=== PATIENT | male | born 1945 | race Caucasian/White ===

== ENCOUNTER 2017-03-23 10:12 | Day surgery (SDC) | payer MEDICARE ==
[~2017-03-23] VITALS: Ht 185.4 cm; Wt 140.9 kg
[~2017-03-23 10:12] MED LIST: ATOR20TA9 PO; CARV3.122 PO; CHOL5000 PO; DIPH50CA62 PO; EPLE50TA3 PO; GABA-826 PO; GUAI600T31 PO; IPRA15SP INH; LEVO125T PO; MONT10TA9 PO; MULT-717 PO; POTA20TA14 PO; TORS20TA2 PO; WARF5TAB PO
[2017-03-23 10:49] VITALS: BP 118/65
[2017-03-23] MEDS ORDERED: ALBU18HF INH (11:17)
[2017-03-23] MEDS ORDERED: IPRA3AMP NEB (11:17)
[2017-03-23 11:20] LABS: BLOOD UREA NITROGEN 22 mg/dL (7-18)
[2017-03-23] MEDS ORDERED: IRON1TAB62 PO (11:23)
[2017-03-23] MEDS ORDERED: ASCO100T5 PO (11:23)
[2017-03-23] MEDS ORDERED: GUAI473L20 PO (11:23)
[2017-03-23] MEDS ORDERED: PHENYLEPHRINE 10 MG/ML ONE (11:40)
[2017-03-23] MEDS ORDERED: PROPOFOL 10 MG/ML, 20ML ONE (11:40)
[2017-03-23] MEDS ORDERED: MIDAZOLAM 1 MG/ML, 5ML ONE (11:55)
[2017-03-23] MEDS ORDERED: HEPARIN 1,000 UNITS/ML, 10ML ONE (11:56)
[2017-03-23] MEDS ORDERED: LIDOCAINE 2%, 20ML ONE (11:56)
[2017-03-23] MEDS ORDERED: FENTANYL PF 100 MCG/2ML ONE (11:56)
[2017-03-23 12:00] LABS: HEMATOCRIT 42.2 % (39.2-51.8); WHITE BLOOD COUNT 11.5 x10^3/uL (3.4-10)
[2017-03-23] MEDS ORDERED: FUROSEMIDE 40 MG/4 ML IV ONE (13:00)
[2017-03-23] MEDS ORDERED: GABAPENTIN 100 MG CAPSULE PO SCH (21:00)
[2017-03-23] MEDS ORDERED: TORSEMIDE 20 MG TABLET PO SCH (21:00)
[2017-03-23] MEDS ORDERED: WARFARIN 5 MG TABLET PO-COUM SCH (21:00)
[2017-03-24] MEDS ORDERED: LEVOTHYROXINE 125 MCG TABLET PO SCH (06:00)
[2017-03-24] MEDS ORDERED: MONTELUKAST 10 MG TABLET PO SCH (09:00)
[2017-03-24] MEDS ORDERED: ATORVASTATIN 20 MG TABLET PO SCH (09:00)
== END 2017-03-23 15:15 | disposition home or self-care (01) ==
LOC: CACL 10:12
PROVIDERS: ATTEND Internal Medicine Cardiovascular Disease
DX: I27.21 Secondary pulmonary arterial hypertension (principal); I34.0 Nonrheumatic mitral (valve) insufficiency; I50.9 Heart failure, unspecified; I11.0 Hypertensive heart disease with heart failure; I48.2 Chronic atrial fibrillation; I27.0 Primary pulmonary hypertension; N50.82 Scrotal pain; Z79.01 Long term (current) use of anticoagulants; Z87.39 Personal history of other diseases of the musculoskeletal system and connective tissue
CPT/HCPCS: 36415; 80048; 85025; 85610; 85730; 93312; 93321; 93325; 93451; 99156; 99157; C1894; J1644; J2250; J2704; J3010; J3490; J2370

== ENCOUNTER 2017-03-29 13:16 | Inpatient (IN) | payer MEDICARE ==
[~2017-03-29] VITALS: Ht 185.4 cm; Wt 126.0 kg
[~2017-03-29 13:16] MED LIST changes: +ALBU18HF INH; +ASCO100T5 PO; +GUAI473L20 PO; +IPRA3AMP NEB; +IRON1TAB62 PO
[2017-03-29 15:24] VITALS: BP 104/64
[2017-03-29] MEDS ORDERED: PLEASE ENTER HEIGHT AND WEIGHT MC SCH (17:11)
[2017-03-29] MEDS ORDERED: POLYETHYLENE GLYCOL 17 GM PACKET PO PRN (17:30)
[2017-03-29] MEDS ORDERED: GUAIFENESIN/COD200MG-20MG/10ML LIQUID PO PRN (17:30)
[2017-03-29] MEDS ORDERED: ONDANSETRON ODT 4 MG PO PRN (17:30)
[2017-03-29 17:49] LABS: HEMATOCRIT 42.9 % (39.2-51.8); HEMOGLOBIN 14.2 g/dL (13.7-18.0); WHITE BLOOD COUNT 11.6 x10^3/uL (3.4-10)
[2017-03-29 18:10] LABS: ASPARTATE AMINO TRANSFERASE 49 U/L (15-37); BLOOD UREA NITROGEN 35 mg/dL (7-18)
[2017-03-29] MEDS ORDERED: WARFARIN 1 MG TABLET PO-COUM ONE (19:00)
[2017-03-29] MEDS: POTASSIUM CHLORIDE 20 MEQ TAB.ER.PRT PO SCH (20:14)
[2017-03-29] MEDS: FUROSEMIDE 40 MG/4 ML IV SCH (20:15)
[2017-03-29] MEDS: GABAPENTIN 100 MG CAPSULE PO SCH (20:16)
[2017-03-29 20:20] VITALS: BP 106/63
[2017-03-29] MEDS ORDERED: ALBUTEROL SULFATE 2.5 MG/3 ML ONE (21:10)
[2017-03-29 21:44] LABS: POTASSIUM,URINE RANDOM 48 mmol/L
[2017-03-29] MEDS ORDERED: ALBUTEROL/IPRATROPIUM 2.5MG/0.5MG, 3 ML NPPB PRN (22:00)
[2017-03-30 01:46] VITALS: BP 98/60
[2017-03-30 05:25] LABS: HEMATOCRIT 41.5 % (39.2-51.8); HEMOGLOBIN 13.6 g/dL (13.7-18.0); WHITE BLOOD COUNT 11.9 x10^3/uL (3.4-10)
[2017-03-30 05:52] LABS: ASPARTATE AMINO TRANSFERASE 46 U/L (15-37); BLOOD UREA NITROGEN 33 mg/dL (7-18)
[2017-03-30] MEDS: LEVOTHYROXINE 150 MCG TABLET PO SCH (06:18)
[2017-03-30 07:51] VITALS: BP 106/64
[2017-03-30] MEDS ORDERED: METOLAZONE 5 MG TABLET ONE (08:59)
[2017-03-30] MEDS: MONTELUKAST 10 MG TABLET PO SCH (09:15)
[2017-03-30] MEDS: FUROSEMIDE 40 MG/4 ML IV SCH (09:16)
[2017-03-30] MEDS: POTASSIUM CHLORIDE 20 MEQ TAB.ER.PRT PO SCH ×3 (09:16→21:38)
[2017-03-30] MEDS: METOLAZONE 2.5 MG TABLET PO SCH (09:16)
[2017-03-30] MEDS: EPLERENONE 100 MG PO SCH (09:37)
[2017-03-30] MEDS: ALBUTEROL/IPRATROPIUM 2.5MG/0.5MG, 3 ML NPPB SCH ×2 (10:34→20:20)
[2017-03-30] MEDS ORDERED: SPIRONOLACTONE 50 MG TABLET PO ONE (11:30)
[2017-03-30] MEDS ORDERED: SPIRONOLACTONE 25 MG TABLET ONE (11:49)
[2017-03-30] MEDS ORDERED: FUROSEMIDE 40 MG/4 ML IV ONE (12:00)
[2017-03-30 13:43] VITALS: BP 110/73
[2017-03-30] MEDS: FUROSEMIDE IV SCH (17:28)
[2017-03-30] MEDS: DEXTROSE 5% IV SCH (17:28)
[2017-03-30] MEDS ORDERED: WARFARIN 2 MG TABLET PO-COUM ONE (18:00)
[2017-03-30 20:15] VITALS: BP 115/69
[2017-03-30 20:27] VITALS: BP 99/63
[2017-03-30] MEDS ORDERED: FUROSEMIDE 40 MG/4 ML IV SCH (21:00)
[2017-03-30] MEDS: ATORVASTATIN 20 MG TABLET PO SCH (21:37)
[2017-03-30] MEDS: GABAPENTIN 100 MG CAPSULE PO SCH (21:37)
[2017-03-31 02:30] VITALS: BP 140/71
[2017-03-31 05:25] LABS: HEMATOCRIT 41.9 % (39.2-51.8); HEMOGLOBIN 13.7 g/dL (13.7-18.0); WHITE BLOOD COUNT 10.8 x10^3/uL (3.4-10)
[2017-03-31 05:32] LABS: BLOOD UREA NITROGEN 30 mg/dL (7-18)
[2017-03-31 05:36] LABS: ASPARTATE AMINO TRANSFERASE 44 U/L (15-37)
[2017-03-31] MEDS: LEVOTHYROXINE 150 MCG TABLET PO SCH (05:53)
[2017-03-31] MEDS ORDERED: POTASSIUM CHLORIDE 40 MEQ in SODIUM CHLORIDE 0.9% 500 ML IV ONE (06:00)
[2017-03-31 07:39] VITALS: BP 137/76
[2017-03-31 08:00] VITALS: BP 107/65
[2017-03-31] MEDS: METOLAZONE 2.5 MG TABLET PO SCH (08:53)
[2017-03-31] MEDS: POTASSIUM CHLORIDE 20 MEQ TAB.ER.PRT PO SCH ×3 (08:53→21:20)
[2017-03-31] MEDS: ATORVASTATIN 20 MG TABLET PO SCH (08:54)
[2017-03-31] MEDS: MONTELUKAST 10 MG TABLET PO SCH (08:54)
[2017-03-31] MEDS: ALBUTEROL/IPRATROPIUM 2.5MG/0.5MG, 3 ML NPPB SCH ×2 (09:00→18:51)
[2017-03-31] MEDS: FUROSEMIDE IV SCH ×2 (11:00→18:11)
[2017-03-31] MEDS: DEXTROSE 5% IV SCH ×2 (11:00→18:11)
[2017-03-31] MEDS: EPLERENONE 100 MG PO SCH (11:09)
[2017-03-31 13:22] VITALS: BP 110/66
[2017-03-31] MEDS ORDERED: POTASSIUM CHLORIDE 20 MEQ in SODIUM CHLORIDE 0.9% 250 ML IV ONE (15:30)
[2017-03-31 17:35] LABS: BLOOD UREA NITROGEN 34 mg/dL (7-18)
[2017-03-31] MEDS ORDERED: WARFARIN 5 MG TABLET PO-COUM ONE (18:00)
[2017-03-31 20:58] VITALS: BP 120/72
[2017-03-31] MEDS: GABAPENTIN 100 MG CAPSULE PO SCH (21:20)
[2017-03-31 21:57] LABS: BLOOD UREA NITROGEN 34 mg/dL (7-18)
[2017-04-01 01:42] VITALS: BP 101/60
[2017-04-01 05:47] LABS: HEMATOCRIT 39.5 % (39.2-51.8); HEMOGLOBIN 13.3 g/dL (13.7-18.0); WHITE BLOOD COUNT 9.7 x10^3/uL (3.4-10)
[2017-04-01 06:06] LABS: ASPARTATE AMINO TRANSFERASE 40 U/L (15-37); BLOOD UREA NITROGEN 30 mg/dL (7-18)
[2017-04-01] MEDS: LEVOTHYROXINE 150 MCG TABLET PO SCH (06:15)
[2017-04-01] MEDS ORDERED: POTASSIUM CHLORIDE 40 MEQ in SODIUM CHLORIDE 0.9% 500 ML IV ONE (07:00)
[2017-04-01 08:21] VITALS: BP 95/55
[2017-04-01] MEDS: METOLAZONE 2.5 MG TABLET PO SCH (08:27)
[2017-04-01] MEDS: POTASSIUM CHLORIDE 20 MEQ TAB.ER.PRT PO SCH ×3 (08:47→21:29)
[2017-04-01] MEDS: ATORVASTATIN 20 MG TABLET PO SCH (08:47)
[2017-04-01] MEDS: MONTELUKAST 10 MG TABLET PO SCH (08:47)
[2017-04-01] MEDS: SPIRONOLACTONE 50 MG TABLET PO SCH (09:00)
[2017-04-01 10:30] VITALS: BP 103/57
[2017-04-01] MEDS: DEXTROSE 5% IV SCH ×2 (10:52→17:20)
[2017-04-01] MEDS: FUROSEMIDE IV SCH ×2 (10:52→17:20)
[2017-04-01 11:45] VITALS: BP 117/77
[2017-04-01] MEDS: EPLERENONE 100 MG PO SCH (12:00)
[2017-04-01 14:51] VITALS: BP 97/67
[2017-04-01] MEDS ORDERED: WARFARIN 7.5 MG TABLET PO-COUM ONE (18:00)
[2017-04-01] MEDS: DOCUSATE 100 MG CAPSULE PO PRN (18:21)
[2017-04-01 20:00] VITALS: BP 101/59
[2017-04-01] MEDS: GABAPENTIN 100 MG CAPSULE PO SCH (21:29)
[2017-04-01] MEDS: ALBUTEROL/IPRATROPIUM 2.5MG/0.5MG, 3 ML NPPB SCH (21:35)
[2017-04-02 04:00] VITALS: BP 97/61
[2017-04-02 05:57] LABS: BLOOD UREA NITROGEN 32 mg/dL (7-18)
[2017-04-02] MEDS: LEVOTHYROXINE 150 MCG TABLET PO SCH (06:17)
[2017-04-02 07:58] VITALS: BP 106/63
[2017-04-02] MEDS: SPIRONOLACTONE 50 MG TABLET PO SCH (08:14)
[2017-04-02] MEDS: METOLAZONE 2.5 MG TABLET PO SCH (08:14)
[2017-04-02] MEDS: POTASSIUM CHLORIDE 20 MEQ TAB.ER.PRT PO SCH ×4 (08:14→21:20)
[2017-04-02] MEDS: ALBUTEROL/IPRATROPIUM 2.5MG/0.5MG, 3 ML NPPB SCH (09:00)
[2017-04-02] MEDS: DEXTROSE 5% IV SCH ×2 (09:22→17:38)
[2017-04-02] MEDS: FUROSEMIDE IV SCH ×2 (09:22→17:38)
[2017-04-02] MEDS: ATORVASTATIN 20 MG TABLET PO SCH (09:22)
[2017-04-02] MEDS: MONTELUKAST 10 MG TABLET PO SCH (09:22)
[2017-04-02] MEDS: EPLERENONE 100 MG PO SCH (09:24)
[2017-04-02 14:30] VITALS: BP 110/73
[2017-04-02] MEDS ORDERED: WARFARIN 7.5 MG TABLET PO-COUM ONE (18:00)
[2017-04-02] MEDS ORDERED: ONDANSETRON ODT 4 MG PO PRN (20:00)
[2017-04-02] MEDS: GABAPENTIN 100 MG CAPSULE PO SCH (21:20)
[2017-04-02 21:25] VITALS: BP 97/61
[2017-04-03 01:16] VITALS: BP 105/65
[2017-04-03 05:52] LABS: HEMATOCRIT 40.6 % (39.2-51.8); HEMOGLOBIN 13.6 g/dL (13.7-18.0); WHITE BLOOD COUNT 10.5 x10^3/uL (3.4-10)
[2017-04-03 06:01] LABS: ASPARTATE AMINO TRANSFERASE 45 U/L (15-37); BLOOD UREA NITROGEN 35 mg/dL (7-18)
[2017-04-03] MEDS: POTASSIUM CHLORIDE 20 MEQ TAB.ER.PRT PO SCH ×4 (06:19→20:08)
[2017-04-03] MEDS: LEVOTHYROXINE 150 MCG TABLET PO SCH (06:20)
[2017-04-03] MEDS: METOLAZONE 2.5 MG TABLET PO SCH (07:49)
[2017-04-03 08:06] VITALS: BP 104/67
[2017-04-03] MEDS: ATORVASTATIN 20 MG TABLET PO SCH (08:41)
[2017-04-03] MEDS: EPLERENONE 100 MG PO SCH (08:41)
[2017-04-03] MEDS: MONTELUKAST 10 MG TABLET PO SCH (08:41)
[2017-04-03] MEDS: FUROSEMIDE IV SCH (09:37)
[2017-04-03] MEDS: DEXTROSE 5% IV SCH (09:37)
[2017-04-03] MEDS: POLYETHYLENE GLYCOL 17 GM PACKET PO PRN (10:55)
[2017-04-03] MEDS: DOCUSATE 100 MG CAPSULE PO PRN (11:00)
[2017-04-03 12:23] VITALS: BP 98/76
[2017-04-03] MEDS ORDERED: WARFARIN 10 MG TABLET PO-COUM ONE ×2 (16:17→18:00)
[2017-04-03] MEDS: FUROSEMIDE 40 MG/4 ML IV SCH (16:20)
[2017-04-03] MEDS: GABAPENTIN 100 MG CAPSULE PO SCH (20:08)
[2017-04-03 20:14] VITALS: BP 110/70
[2017-04-03] MEDS: ALBUTEROL/IPRATROPIUM 2.5MG/0.5MG, 3 ML NPPB SCH (20:15)
[2017-04-04 02:00] VITALS: BP 89/55
[2017-04-04] MEDS: LEVOTHYROXINE 150 MCG TABLET PO SCH (06:18)
[2017-04-04 07:25] VITALS: BP 95/61
[2017-04-04] MEDS: METOLAZONE 2.5 MG TABLET PO SCH (08:05)
[2017-04-04 08:09] LABS: HEMATOCRIT 40.8 % (39.2-51.8); HEMOGLOBIN 13.8 g/dL (13.7-18.0); WHITE BLOOD COUNT 9.9 x10^3/uL (3.4-10)
[2017-04-04 08:23] LABS: BLOOD UREA NITROGEN 34 mg/dL (7-18)
[2017-04-04 08:26] LABS: ASPARTATE AMINO TRANSFERASE 45 U/L (15-37)
[2017-04-04] MEDS: ALBUTEROL/IPRATROPIUM 2.5MG/0.5MG, 3 ML NPPB SCH (09:00)
[2017-04-04] MEDS: FUROSEMIDE 40 MG/4 ML IV SCH ×2 (09:56→16:51)
[2017-04-04] MEDS: MONTELUKAST 10 MG TABLET PO SCH (09:56)
[2017-04-04] MEDS: POTASSIUM CHLORIDE 20 MEQ TAB.ER.PRT PO SCH ×3 (09:56→20:43)
[2017-04-04] MEDS: ATORVASTATIN 20 MG TABLET PO SCH (09:57)
[2017-04-04] MEDS: EPLERENONE 100 MG PO SCH (10:01)
[2017-04-04 10:02] VITALS: BP 96/64
[2017-04-04 14:50] VITALS: BP 97/61
[2017-04-04] MEDS ORDERED: WARFARIN 5 MG TABLET PO-COUM ONE (18:00)
[2017-04-04 20:08] VITALS: BP 101/61
[2017-04-04] MEDS: GABAPENTIN 100 MG CAPSULE PO SCH (20:43)
[2017-04-05 02:00] VITALS: BP 100/64
[2017-04-05 05:35] LABS: BLOOD UREA NITROGEN 33 mg/dL (7-18)
[2017-04-05 06:25] VITALS: BP 99/66
[2017-04-05] MEDS: MONTELUKAST 10 MG TABLET PO SCH (09:21)
[2017-04-05] MEDS: METOLAZONE 2.5 MG TABLET PO SCH (09:21)
[2017-04-05] MEDS: LEVOTHYROXINE 150 MCG TABLET PO SCH (09:21)
[2017-04-05] MEDS: ATORVASTATIN 20 MG TABLET PO SCH (09:21)
[2017-04-05] MEDS: POTASSIUM CHLORIDE 20 MEQ TAB.ER.PRT PO SCH ×3 (09:21→20:17)
[2017-04-05] MEDS: FUROSEMIDE 40 MG/4 ML IV SCH ×2 (09:22→17:06)
[2017-04-05] MEDS: ALBUTEROL/IPRATROPIUM 2.5MG/0.5MG, 3 ML NPPB SCH (09:30)
[2017-04-05] MEDS ORDERED: ZOLPIDEM 10MG TABLET PO PRN (10:00)
[2017-04-05] MEDS: EPLERENONE 100 MG PO SCH (10:13)
[2017-04-05 13:30] VITALS: BP 96/61
[2017-04-05] MEDS ORDERED: WARFARIN 5 MG TABLET PO-COUM ONE (18:00)
[2017-04-05 19:52] VITALS: BP 123/71
[2017-04-05] MEDS: GABAPENTIN 100 MG CAPSULE PO SCH (20:17)
[2017-04-05] MEDS: DOCUSATE 100 MG CAPSULE PO PRN (20:18)
[2017-04-05] MEDS: ZOLPIDEM 10MG TABLET PO PRN (20:18)
[2017-04-06 00:06] VITALS: BP 99/72
[2017-04-06 00:27] VITALS: BP 11/62
[2017-04-06 05:38] LABS: HEMATOCRIT 39.7 % (39.2-51.8); HEMOGLOBIN 13.5 g/dL (13.7-18.0); WHITE BLOOD COUNT 9.7 x10^3/uL (3.4-10)
[2017-04-06 05:50] LABS: BLOOD UREA NITROGEN 35 mg/dL (7-18)
[2017-04-06 07:32] VITALS: BP 94/53
[2017-04-06] MEDS: LEVOTHYROXINE 150 MCG TABLET PO SCH (09:14)
[2017-04-06] MEDS: POTASSIUM CHLORIDE 20 MEQ TAB.ER.PRT PO SCH ×3 (09:14→21:40)
[2017-04-06] MEDS: METOLAZONE 2.5 MG TABLET PO SCH (09:14)
[2017-04-06] MEDS: MONTELUKAST 10 MG TABLET PO SCH (09:14)
[2017-04-06] MEDS: ATORVASTATIN 20 MG TABLET PO SCH (09:14)
[2017-04-06] MEDS: FUROSEMIDE 40 MG/4 ML IV SCH ×2 (09:14→17:58)
[2017-04-06] MEDS: EPLERENONE 100 MG PO SCH (09:18)
[2017-04-06] MEDS: ALBUTEROL/IPRATROPIUM 2.5MG/0.5MG, 3 ML NPPB SCH (09:18)
[2017-04-06 13:46] VITALS: BP 103/65
[2017-04-06] MEDS ORDERED: WARFARIN 5 MG TABLET PO-COUM ONE (18:00)
[2017-04-06] MEDS: ZOLPIDEM 10MG TABLET PO PRN (21:40)
[2017-04-06] MEDS: POLYETHYLENE GLYCOL 17 GM PACKET PO PRN (21:40)
[2017-04-06] MEDS: GABAPENTIN 100 MG CAPSULE PO SCH (21:40)
[2017-04-06 21:47] VITALS: BP 95/61
[2017-04-07 03:37] VITALS: BP 99/62
[2017-04-07] MEDS: LEVOTHYROXINE 150 MCG TABLET PO SCH (05:31)
[2017-04-07 06:15] LABS: BLOOD UREA NITROGEN 34 mg/dL (7-18)
[2017-04-07 07:15] VITALS: BP 104/62
[2017-04-07] MEDS: POTASSIUM CHLORIDE 20 MEQ TAB.ER.PRT PO SCH ×3 (07:41→20:43)
[2017-04-07] MEDS: FUROSEMIDE 40 MG/4 ML IV SCH ×2 (07:41→17:41)
[2017-04-07] MEDS: MONTELUKAST 10 MG TABLET PO SCH (07:41)
[2017-04-07] MEDS: EPLERENONE 100 MG PO SCH (07:42)
[2017-04-07] MEDS: METOLAZONE 2.5 MG TABLET PO SCH (07:42)
[2017-04-07] MEDS: ALBUTEROL/IPRATROPIUM 2.5MG/0.5MG, 3 ML NPPB SCH (09:00)
[2017-04-07] MEDS: CEFTRIAXONE PMX 2GM/50ML 50 ML IV SCH (11:09)
[2017-04-07 14:30] VITALS: BP 95/55
[2017-04-07] MEDS ORDERED: MAGNESIUM CITRATE 300ML ORAL SOL PO ONE (17:30)
[2017-04-07] MEDS ORDERED: WARFARIN 10 MG TABLET PO-COUM ONE (18:00)
[2017-04-07 20:30] VITALS: BP 104/99
[2017-04-07] MEDS: GABAPENTIN 100 MG CAPSULE PO SCH (20:43)
[2017-04-07] MEDS: ATORVASTATIN 20 MG TABLET PO SCH (20:43)
[2017-04-07] MEDS: ZOLPIDEM 10MG TABLET PO PRN (21:33)
[2017-04-08 03:40] VITALS: BP 97/62
[2017-04-08 05:47] LABS: HEMATOCRIT 41.8 % (39.2-51.8); HEMOGLOBIN 13.7 g/dL (13.7-18.0); WHITE BLOOD COUNT 10.8 x10^3/uL (3.4-10)
[2017-04-08 06:19] LABS: BLOOD UREA NITROGEN 36 mg/dL (7-18)
[2017-04-08] MEDS: LEVOTHYROXINE 150 MCG TABLET PO SCH (06:41)
[2017-04-08] MEDS: METOLAZONE 2.5 MG TABLET PO SCH (08:37)
[2017-04-08] MEDS: EPLERENONE 100 MG PO SCH (08:37)
[2017-04-08 08:42] VITALS: BP 109/73
[2017-04-08] MEDS: CEFTRIAXONE PMX 2GM/50ML 50 ML IV SCH ×2 (10:22→12:12)
[2017-04-08] MEDS: POTASSIUM CHLORIDE 20 MEQ TAB.ER.PRT PO SCH ×3 (10:24→21:55)
[2017-04-08] MEDS: MONTELUKAST 10 MG TABLET PO SCH (10:24)
[2017-04-08] MEDS: FUROSEMIDE 40 MG/4 ML IV SCH ×3 (10:25→17:36)
[2017-04-08 13:55] VITALS: BP 100/65
[2017-04-08] MEDS ORDERED: WARFARIN 10 MG TABLET PO-COUM ONE (18:00)
[2017-04-08 19:05] VITALS: BP 99/61
[2017-04-08] MEDS: ATORVASTATIN 20 MG TABLET PO SCH (21:56)
[2017-04-08] MEDS: GABAPENTIN 100 MG CAPSULE PO SCH (21:56)
[2017-04-08] MEDS: ZOLPIDEM 10MG TABLET PO PRN (22:01)
[2017-04-09 04:57] VITALS: BP 92/51
[2017-04-09 05:38] LABS: BLOOD UREA NITROGEN 38 mg/dL (7-18)
[2017-04-09] MEDS: LEVOTHYROXINE 150 MCG TABLET PO SCH (06:00)
[2017-04-09 07:48] VITALS: BP 93/57
[2017-04-09] MEDS: METOLAZONE 2.5 MG TABLET PO SCH (08:03)
[2017-04-09] MEDS: CEFTRIAXONE PMX 2GM/50ML 50 ML IV SCH (09:10)
[2017-04-09] MEDS: FUROSEMIDE 40 MG/4 ML IV SCH ×2 (09:10→17:17)
[2017-04-09] MEDS: EPLERENONE 100 MG PO SCH (09:11)
[2017-04-09] MEDS: MONTELUKAST 10 MG TABLET PO SCH (09:11)
[2017-04-09] MEDS: POTASSIUM CHLORIDE 20 MEQ TAB.ER.PRT PO SCH ×3 (09:11→20:34)
[2017-04-09] MEDS ORDERED: POTASSIUM CHLORIDE 20 MEQ TAB.ER.PRT PO ONE (10:30)
[2017-04-09 13:15] VITALS: BP 104/63
[2017-04-09] MEDS ORDERED: DIPHENHYDRAMINE 25 MG CAPSULE PO PRN (15:30)
[2017-04-09] MEDS ORDERED: WARFARIN 10 MG TABLET PO-COUM ONE (18:00)
[2017-04-09 19:55] VITALS: BP_SYST 100; BP_SYST 96; BP_DIAS 54; BP_DIAS 57
[2017-04-09] MEDS: ATORVASTATIN 20 MG TABLET PO SCH (20:34)
[2017-04-09] MEDS: ZOLPIDEM 10MG TABLET PO PRN ×2 (20:35→21:28)
[2017-04-09] MEDS: GABAPENTIN 100 MG CAPSULE PO SCH (20:35)
[2017-04-10 01:37] VITALS: BP 104/62
[2017-04-10] MEDS: LEVOTHYROXINE 150 MCG TABLET PO SCH (05:14)
[2017-04-10 05:39] LABS: ASPARTATE AMINO TRANSFERASE 83 U/L (15-37); BLOOD UREA NITROGEN 39 mg/dL (7-18)
[2017-04-10 05:47] LABS: HEMATOCRIT 38.9 % (39.2-51.8); WHITE BLOOD COUNT 8.6 x10^3/uL (3.4-10)
[2017-04-10 07:22] VITALS: BP 91/59
[2017-04-10] MEDS: EPLERENONE 100 MG PO SCH (09:00)
[2017-04-10] MEDS: METOLAZONE 2.5 MG TABLET PO SCH (09:02)
[2017-04-10] MEDS: MONTELUKAST 10 MG TABLET PO SCH (09:02)
[2017-04-10] MEDS: POTASSIUM CHLORIDE 20 MEQ TAB.ER.PRT PO SCH ×4 (09:02→20:19)
[2017-04-10] MEDS: CEFTRIAXONE PMX 2GM/50ML 50 ML IV SCH (09:03)
[2017-04-10] MEDS: FUROSEMIDE 40 MG/4 ML IV SCH ×2 (09:03→17:44)
[2017-04-10] MEDS ORDERED: POTASSIUM CHLORIDE 20 MEQ TAB.ER.PRT PO ONE (11:00)
[2017-04-10 15:21] VITALS: BP 101/65
[2017-04-10] MEDS ORDERED: WARFARIN 7.5 MG TABLET PO-COUM ONE (18:00)
[2017-04-10 19:30] VITALS: BP 93/59
[2017-04-10] MEDS: GABAPENTIN 100 MG CAPSULE PO SCH (20:18)
[2017-04-10] MEDS: ZOLPIDEM 10MG TABLET PO PRN ×2 (20:18→20:19)
[2017-04-10] MEDS: ATORVASTATIN 20 MG TABLET PO SCH (20:18)
[2017-04-11 04:00] VITALS: BP 96/61
[2017-04-11 05:27] LABS: ASPARTATE AMINO TRANSFERASE 70 U/L (15-37); BLOOD UREA NITROGEN 39 mg/dL (7-18)
[2017-04-11 05:31] LABS: HEMATOCRIT 38.1 % (39.2-51.8); WHITE BLOOD COUNT 9.1 x10^3/uL (3.4-10)
[2017-04-11] MEDS: LEVOTHYROXINE 150 MCG TABLET PO SCH (06:17)
[2017-04-11] MEDS: POTASSIUM CHLORIDE 20 MEQ TAB.ER.PRT PO SCH ×4 (06:17→20:20)
[2017-04-11 08:11] VITALS: BP 95/63
[2017-04-11] MEDS: EPLERENONE 100 MG PO SCH (09:00)
[2017-04-11] MEDS ORDERED: ALLOPURINOL 100 MG TABLET PO SCH (09:00)
[2017-04-11] MEDS: MONTELUKAST 10 MG TABLET PO SCH (09:03)
[2017-04-11] MEDS: METOLAZONE 2.5 MG TABLET PO SCH (09:03)
[2017-04-11] MEDS: FUROSEMIDE 40 MG/4 ML IV SCH ×2 (09:03→17:00)
[2017-04-11] MEDS: CEFTRIAXONE PMX 2GM/50ML 50 ML IV SCH (09:04)
[2017-04-11 13:25] VITALS: BP 100/64
[2017-04-11] MEDS ORDERED: WARFARIN 2.5 MG TABLET PO-COUM ONE (18:00)
[2017-04-11] MEDS: ATORVASTATIN 20 MG TABLET PO SCH (20:20)
[2017-04-11] MEDS: GABAPENTIN 100 MG CAPSULE PO SCH (20:20)
[2017-04-11] MEDS: ZOLPIDEM 10MG TABLET PO PRN (20:27)
[2017-04-11 20:34] VITALS: BP 96/61
[2017-04-12 03:00] VITALS: BP 98/65
[2017-04-12] MEDS: POTASSIUM CHLORIDE 20 MEQ TAB.ER.PRT PO SCH ×4 (06:17→20:55)
[2017-04-12] MEDS: LEVOTHYROXINE 150 MCG TABLET PO SCH (06:17)
[2017-04-12 06:30] LABS: ASPARTATE AMINO TRANSFERASE 69 U/L (15-37); BLOOD UREA NITROGEN 37 mg/dL (7-18)
[2017-04-12 08:45] VITALS: BP 99/62
[2017-04-12] MEDS: MONTELUKAST 10 MG TABLET PO SCH (08:47)
[2017-04-12] MEDS: DOCUSATE 100 MG CAPSULE PO PRN (08:47)
[2017-04-12] MEDS: FUROSEMIDE 40 MG/4 ML IV SCH ×2 (08:47→16:38)
[2017-04-12] MEDS: EPLERENONE 100 MG PO SCH (08:47)
[2017-04-12] MEDS: METOLAZONE 2.5 MG TABLET PO SCH (08:47)
[2017-04-12] MEDS: CEFTRIAXONE PMX 2GM/50ML 50 ML IV SCH (10:38)
[2017-04-12 12:42] VITALS: BP 96/63
[2017-04-12] MEDS ORDERED: WARFARIN 2.5 MG TABLET PO-COUM ONE (18:00)
[2017-04-12 18:25] VITALS: BP 97/66
[2017-04-12] MEDS: GABAPENTIN 100 MG CAPSULE PO SCH (20:55)
[2017-04-12] MEDS: ATORVASTATIN 20 MG TABLET PO SCH (20:55)
[2017-04-12] MEDS: ZOLPIDEM 10MG TABLET PO PRN ×2 (20:57→20:58)
[2017-04-12] MEDS: POLYETHYLENE GLYCOL 17 GM PACKET PO PRN (21:11)
[2017-04-13 04:00] VITALS: BP 95/62
[2017-04-13 06:30] LABS: BLOOD UREA NITROGEN 36 mg/dL (7-18)
[2017-04-13] MEDS: LEVOTHYROXINE 150 MCG TABLET PO SCH (06:39)
[2017-04-13] MEDS: POTASSIUM CHLORIDE 20 MEQ TAB.ER.PRT PO SCH ×4 (06:42→20:33)
[2017-04-13 07:35] VITALS: BP 97/60
[2017-04-13] MEDS: MONTELUKAST 10 MG TABLET PO SCH (08:52)
[2017-04-13] MEDS: CEFTRIAXONE PMX 2GM/50ML 50 ML IV SCH (08:53)
[2017-04-13] MEDS: METOLAZONE 2.5 MG TABLET PO SCH (08:53)
[2017-04-13] MEDS: FUROSEMIDE 40 MG/4 ML IV SCH ×2 (08:53→17:43)
[2017-04-13] MEDS: EPLERENONE 100 MG PO SCH (08:54)
[2017-04-13 12:56] VITALS: BP 92/59
[2017-04-13] MEDS: POLYETHYLENE GLYCOL 17 GM PACKET PO PRN (17:43)
[2017-04-13] MEDS ORDERED: WARFARIN 5 MG TABLET PO-COUM ONE (18:00)
[2017-04-13 18:34] VITALS: BP 92/60
[2017-04-13] MEDS: ATORVASTATIN 20 MG TABLET PO SCH (20:32)
[2017-04-13] MEDS: ZOLPIDEM 10MG TABLET PO PRN (20:33)
[2017-04-13] MEDS: GABAPENTIN 100 MG CAPSULE PO SCH (20:33)
[2017-04-14 01:49] VITALS: BP 95/61
[2017-04-14] MEDS: POTASSIUM CHLORIDE 20 MEQ TAB.ER.PRT PO SCH ×4 (05:57→20:22)
[2017-04-14] MEDS: LEVOTHYROXINE 150 MCG TABLET PO SCH (05:58)
[2017-04-14 06:37] LABS: ASPARTATE AMINO TRANSFERASE 46 U/L (15-37); BLOOD UREA NITROGEN 36 mg/dL (7-18)
[2017-04-14 06:54] VITALS: BP_SYST 96; BP_SYST 99; BP_DIAS 60; BP_DIAS 64
[2017-04-14] MEDS: METOLAZONE 2.5 MG TABLET PO SCH (08:48)
[2017-04-14] MEDS: MONTELUKAST 10 MG TABLET PO SCH (09:53)
[2017-04-14] MEDS: FUROSEMIDE 40 MG/4 ML IV SCH (09:53)
[2017-04-14] MEDS: EPLERENONE 100 MG PO SCH (09:53)
[2017-04-14 14:54] VITALS: BP_SYST 89; BP_SYST 95; BP_DIAS 58; BP_DIAS 61
[2017-04-14] MEDS ORDERED: WARFARIN 10 MG TABLET PO-COUM ONE (18:00)
[2017-04-14] MEDS: TORSEMIDE 20 MG TABLET PO SCH (18:07)
[2017-04-14 18:47] VITALS: BP 100/65
[2017-04-14] MEDS: GABAPENTIN 100 MG CAPSULE PO SCH (20:22)
[2017-04-14] MEDS: ATORVASTATIN 20 MG TABLET PO SCH (20:22)
[2017-04-14] MEDS: ZOLPIDEM 10MG TABLET PO PRN (20:22)
[2017-04-15 03:30] VITALS: BP 94/60
[2017-04-15 06:07] LABS: ASPARTATE AMINO TRANSFERASE 45 U/L (15-37); BLOOD UREA NITROGEN 37 mg/dL (7-18)
[2017-04-15] MEDS: LEVOTHYROXINE 150 MCG TABLET PO SCH (06:15)
[2017-04-15] MEDS: TORSEMIDE 20 MG TABLET PO SCH ×2 (06:15→07:41)
[2017-04-15] MEDS: POTASSIUM CHLORIDE 20 MEQ TAB.ER.PRT PO SCH ×2 (06:17→12:32)
[2017-04-15] MEDS: METOLAZONE 2.5 MG TABLET PO SCH (07:42)
[2017-04-15] MEDS: MONTELUKAST 10 MG TABLET PO SCH (07:42)
[2017-04-15] MEDS: EPLERENONE 100 MG PO SCH (07:43)
[2017-04-15 07:44] VITALS: BP 96/61
[2017-04-15] MEDS ORDERED: TORS20TA PO (11:49)
[2017-04-15] MEDS ORDERED: DOCU-131 PO (11:49)
[2017-04-15] MEDS ORDERED: METO2.5T PO (11:49)
[2017-04-15] MEDS ORDERED: POTA20TA6 PO (11:49)
[2017-04-15] MEDS ORDERED: MAGN64TA9 PO (11:50)
[2017-04-15 13:54] VITALS: BP 93/56
[2017-04-15] MEDS ORDERED: WARFARIN 10 MG TABLET PO-COUM ONE (18:00)
== END 2017-04-15 16:00 | disposition home or self-care (01) | DRG 291 ==
LOC: 5SO 14:56 → DCLOUNGE 04-15 15:10
PROVIDERS: ADMIT Internal Medicine; ATTEND Hospitalist
PROC: 5A09357 Assistance with Respiratory Ventilation, Less than 24 Consecutive Hours, Continuous Positive Airway Pressure (ICD-10-PCS; principal; 2017-03-31)
PROC: 5A09357 Assistance with Respiratory Ventilation, Less than 24 Consecutive Hours, Continuous Positive Airway Pressure (ICD-10-PCS; 2017-04-01)
PROC: 5A09357 Assistance with Respiratory Ventilation, Less than 24 Consecutive Hours, Continuous Positive Airway Pressure (ICD-10-PCS; 2017-04-02)
PROC: 5A09357 Assistance with Respiratory Ventilation, Less than 24 Consecutive Hours, Continuous Positive Airway Pressure (ICD-10-PCS; 2017-04-03)
PROC: 5A09357 Assistance with Respiratory Ventilation, Less than 24 Consecutive Hours, Continuous Positive Airway Pressure (ICD-10-PCS; 2017-04-04)
PROC: 5A09357 Assistance with Respiratory Ventilation, Less than 24 Consecutive Hours, Continuous Positive Airway Pressure (ICD-10-PCS; 2017-04-06)
PROC: 5A09357 Assistance with Respiratory Ventilation, Less than 24 Consecutive Hours, Continuous Positive Airway Pressure (ICD-10-PCS; 2017-04-07)
PROC: 5A09357 Assistance with Respiratory Ventilation, Less than 24 Consecutive Hours, Continuous Positive Airway Pressure (ICD-10-PCS; 2017-04-10)
DX: I13.0 Hypertensive heart and chronic kidney disease with heart failure and stage 1 through stage 4 chronic kidney disease, or unspecified chronic kidney disease (principal); I50.33 Acute on chronic diastolic (congestive) heart failure; N17.0 Acute kidney failure with tubular necrosis; E87.0 Hyperosmolality and hypernatremia; D68.69 Other thrombophilia; E11.22 Type 2 diabetes mellitus with diabetic chronic kidney disease; E87.1 Hypo-osmolality and hyponatremia; I48.2 Chronic atrial fibrillation; G25.81 Restless legs syndrome; L03.90 Cellulitis, unspecified; N50.89 Other specified disorders of the male genital organs; Z79.01 Long term (current) use of anticoagulants; E03.9 Hypothyroidism, unspecified; E66.9 Obesity, unspecified; E78.5 Hyperlipidemia, unspecified; E87.6 Hypokalemia; G47.33 Obstructive sleep apnea (adult) (pediatric); I25.10 Atherosclerotic heart disease of native coronary artery without angina pectoris; I27.21 Secondary pulmonary arterial hypertension; I27.29 Other secondary pulmonary hypertension; I34.0 Nonrheumatic mitral (valve) insufficiency; I87.8 Other specified disorders of veins; K59.00 Constipation, unspecified; N18.2 Chronic kidney disease, stage 2 (mild); S91.301A Unspecified open wound, right foot, initial encounter; T50.2X5A Adverse effect of carbonic-anhydrase inhibitors, benzothiadiazides and other diuretics, initial encounter; Z79.84 Long term (current) use of oral hypoglycemic drugs; Z82.49 Family history of ischemic heart disease and other diseases of the circulatory system; Z86.73 Personal history of transient ischemic attack (TIA), and cerebral infarction without residual deficits; Z87.891 Personal history of nicotine dependence; Z95.0 Presence of cardiac pacemaker; Z98.1 Arthrodesis status; Z79.899 Other long term (current) drug therapy
CPT/HCPCS: 36415; 71010; 76870; 80048; 80053; 81003; 82306; 82436; 82550; 82607; 83036; 83735; 83880; 83970; 84100; 84132; 84133; 84300; 84443; 84550; 85025; 85610; 87040; 87324; 93005; 93922; 94640; C8929; J0696; J1940; J3480; J7620; Q0162; 29581-50; J7040; J7050

== ENCOUNTER → 2017-04-18 | Outpatient (CLI) | payer MEDICARE ==
[~2017-04-18] MED LIST changes: +DOCU-131 PO; +MAGN64TA9 PO; +METO2.5T PO; +POTA20TA6 PO; +TORS20TA PO
== END | disposition home or self-care (01) ==
LOC: WOUND 13:18
PROVIDERS: ATTEND Internal Medicine
DX: E11.621 Type 2 diabetes mellitus with foot ulcer (principal); L97.521 Non-pressure chronic ulcer of other part of left foot limited to breakdown of skin; E11.622 Type 2 diabetes mellitus with other skin ulcer; L97.222 Non-pressure chronic ulcer of left calf with fat layer exposed; L97.212 Non-pressure chronic ulcer of right calf with fat layer exposed; S51.011A Laceration without foreign body of right elbow, initial encounter; I48.91 Unspecified atrial fibrillation; I11.0 Hypertensive heart disease with heart failure; I50.9 Heart failure, unspecified; E11.40 Type 2 diabetes mellitus with diabetic neuropathy, unspecified; J43.9 Emphysema, unspecified; E03.9 Hypothyroidism, unspecified; Z87.891 Personal history of nicotine dependence; Z86.73 Personal history of transient ischemic attack (TIA), and cerebral infarction without residual deficits; Z72.89 Other problems related to lifestyle; X58.XXXA Exposure to other specified factors, initial encounter; Y93.89 Activity, other specified; Y92.89 Other specified places as the place of occurrence of the external cause; Y99.8 Other external cause status
CPT/HCPCS: 97597; 97598; G0463; WOU0463

== ENCOUNTER 2017-05-01 01:27 | Inpatient (IN) | payer MEDICARE ==
[~2017-05-01] VITALS: Ht 185.4 cm; Wt 134.1 kg
[2017-05-01 02:33] LABS: BASOPHILS # (AUTO) 0.06 x10^3/uL (0-0.1); BASOPHILS % (AUTO) 1 % (0-1); EOSINOPHILS # (AUTO) 0.08 x10^3/uL (0-0.4); EOSINOPHILS % (AUTO) 1 % (1-7); LYMPHOCYTES % (AUTO) 6 % (22-44); MD NO; MEAN CORPUSCULAR HEMOGLOBIN 27.5 pg (27.5-34.5); MEAN CORPUSCULAR HGB CONC 33.3 g/dL (33.2-36.2); MEAN CORPUSCULAR VOLUME 82.6 fL (81-97); MEAN PLATELET VOLUME 7.4 fL (7.4-10.4); MONOCYTES # (AUTO) 1.24 x10^3/uL (0.2-0.8); MONOCYTES % (AUTO) 10 % (2-9); NEUTROPHILS # (AUTO) 9.85 x10^3/uL (1.8-6.8); NEUTROPHILS % (AUTO) 83 % (42-75); PLATELET COUNT 200 x10^3/uL (130-400); RED BLOOD COUNT 4.76 x10^6/uL (4.38-5.82); RED CELL DISTRIBUTION WIDTH 15.9 % (9.4-14.8)
[2017-05-01 02:41] LABS: INTERNATIONAL NORMALIZED RATIO 2.32 (0.93-1.1); PROTHROMBIN TIME 23.5 Seconds (9.6-11.5)
[2017-05-01 02:44] LABS: ALANINE AMINOTRANSFERASE 31 U/L (12-78); ALBUMIN 2.2 g/dL (3.4-5.0); ANION GAP 11 mmol/L (5-15); CALCIUM 7.7 mg/dL (8.5-10.1); CHLORIDE 88 mmol/L (98-107); CREATININE 1.22 mg/dL (0.7-1.3)
[2017-05-01 02:49] LABS: ALKALINE PHOSPHATASE 157 U/L (45-117); BILIRUBIN,TOTAL 0.7 mg/dL (0.2-1.0); TOTAL PROTEIN 5.6 g/dL (6.4-8.2)
[2017-05-01] MEDS ORDERED: FURO40SO5 PO (04:01)
[2017-05-01] MEDS ORDERED: ONDANSETRON 2MG/ML, 2ML IVPush PRN (04:30)
[2017-05-01] MEDS ORDERED: GUAIFENESIN/COD200MG-20MG/10ML LIQUID PO PRN (07:00)
[2017-05-01] MEDS ORDERED: ACETAMINOPHEN 325 MG TABLET PO PRN (07:00)
[2017-05-01 07:10] LABS: TROPONIN I 0.096 ng/mL (0.000-0.045)
[2017-05-01 08:07] VITALS: BP 116/76
[2017-05-01] MEDS: [UNRECOGNIZED DRUG - OTHER] HOMEMEDPO SCH (09:00)
[2017-05-01] MEDS: EPLERENONE 100 MG HOMEMEDPO SCH (09:00)
[2017-05-01] MEDS ORDERED: TORSEMIDE 20 MG TABLET PO SCH (09:00)
[2017-05-01] MEDS ORDERED: ALBUTEROL HFA 90 MCG/SPRAY INH SCH (09:00)
[2017-05-01] MEDS: MULTIVITAMINS/MINERALS TABLET PO SCH (10:34)
[2017-05-01] MEDS: ASCORBIC ACID 500 MG TABLET PO SCH (10:34)
[2017-05-01] MEDS: LEVOTHYROXINE 150 MCG TABLET HOMEMEDPO SCH (10:34)
[2017-05-01] MEDS: SODIUM CHLORIDE FLUSH 10ML SYR IVF SCH ×2 (10:35→19:33)
[2017-05-01] MEDS: MONTELUKAST 10 MG TABLET PO SCH (10:35)
[2017-05-01] MEDS: FUROSEMIDE 40 MG/4 ML IV SCH ×2 (10:35→17:00)
[2017-05-01] MEDS: POTASSIUM CHLORIDE 20 MEQ TAB.ER.PRT PO SCH ×3 (10:35→19:32)
[2017-05-01] MEDS: CHOLECALCIFEROL 1,000 UNIT TABLET PO SCH (10:35)
[2017-05-01] MEDS: MAGNESIUM CHLORIDE 64 MG TABLET.DR PO SCH (10:35)
[2017-05-01 15:22] VITALS: BP 107/65
[2017-05-01] MEDS: ALBUTEROL SULFATE 2.5 MG/3 ML NPPB SCH ×2 (16:40→20:47)
[2017-05-01] MEDS ORDERED: WARFARIN 5 MG TABLET PO-COUM ONE (16:52)
[2017-05-01] MEDS: WARFARIN 5 MG TABLET PO-COUM SCH (17:01)
[2017-05-01] MEDS: ATORVASTATIN 20 MG TABLET PO SCH (19:33)
[2017-05-01] MEDS: GABAPENTIN 400 MG CAPSULE PO SCH (19:33)
[2017-05-01] MEDS: DOXYCYCLINE 100MG TABLET PO SCH (19:33)
[2017-05-01 20:18] VITALS: BP 128/81
[2017-05-02 01:05] VITALS: BP 102/63
[2017-05-02 04:37] LABS: HCT (SEDRATE) 39.5 % (39.2-51.8)
[2017-05-02 04:38] LABS: BASOPHILS # (AUTO) 0.07 x10^3/uL (0-0.1); BASOPHILS % (AUTO) 1 % (0-1); EOSINOPHILS % (AUTO) 1 % (1-7); LYMPHOCYTES # (AUTO) 0.65 x10^3/uL (1-3.4); LYMPHOCYTES % (AUTO) 7 % (22-44); MD NO; MEAN CORPUSCULAR HEMOGLOBIN 27.6 pg (27.5-34.5); MEAN CORPUSCULAR VOLUME 83.6 fL (81-97); MEAN PLATELET VOLUME 7.4 fL (7.4-10.4); MONOCYTES # (AUTO) 1.27 x10^3/uL (0.2-0.8); MONOCYTES % (AUTO) 13 % (2-9); NEUTROPHILS # (AUTO) 7.54 x10^3/uL (1.8-6.8); NEUTROPHILS % (AUTO) 78 % (42-75); PLATELET COUNT 191 x10^3/uL (130-400); RED BLOOD COUNT 4.71 x10^6/uL (4.38-5.82); RED CELL DISTRIBUTION WIDTH 16.5 % (9.4-14.8)
[2017-05-02 04:49] LABS: CHLORIDE 93 mmol/L (98-107)
[2017-05-02 05:02] LABS: ANION GAP 11 mmol/L (5-15); CALCIUM 8.1 mg/dL (8.5-10.1); CREATININE 1.07 mg/dL (0.7-1.3)
[2017-05-02] MEDS: LEVOTHYROXINE 150 MCG TABLET HOMEMEDPO SCH (05:19)
[2017-05-02] MEDS: EPLERENONE 100 MG HOMEMEDPO SCH (07:47)
[2017-05-02] MEDS: [UNRECOGNIZED DRUG - OTHER] HOMEMEDPO SCH (07:48)
[2017-05-02 08:21] VITALS: BP 115/68
[2017-05-02] MEDS: ALBUTEROL SULFATE 2.5 MG/3 ML NPPB SCH ×3 (09:00→20:15)
[2017-05-02] MEDS: MONTELUKAST 10 MG TABLET PO SCH (10:18)
[2017-05-02] MEDS: FUROSEMIDE 40 MG/4 ML IV SCH ×2 (10:18→20:37)
[2017-05-02] MEDS: CHOLECALCIFEROL 1,000 UNIT TABLET PO SCH (10:18)
[2017-05-02] MEDS: POTASSIUM CHLORIDE 20 MEQ TAB.ER.PRT PO SCH ×3 (10:18→20:53)
[2017-05-02] MEDS: ASCORBIC ACID 500 MG TABLET PO SCH (10:18)
[2017-05-02] MEDS: DOXYCYCLINE 100MG TABLET PO SCH ×2 (10:18→20:37)
[2017-05-02] MEDS: MAGNESIUM CHLORIDE 64 MG TABLET.DR PO SCH (10:18)
[2017-05-02] MEDS: MULTIVITAMINS/MINERALS TABLET PO SCH (10:18)
[2017-05-02] MEDS: SODIUM CHLORIDE FLUSH 10ML SYR IVF SCH ×2 (10:19→20:37)
[2017-05-02 14:43] VITALS: BP 100/62
[2017-05-02 18:28] LABS: INTERNATIONAL NORMALIZED RATIO 2.03 (0.93-1.1); PROTHROMBIN TIME 20.6 Seconds (9.6-11.5)
[2017-05-02 20:07] VITALS: BP 114/70
[2017-05-02] MEDS: ATORVASTATIN 20 MG TABLET PO SCH (20:37)
[2017-05-02] MEDS: GABAPENTIN 400 MG CAPSULE PO SCH (20:37)
[2017-05-02] MEDS: WARFARIN 5 MG TABLET PO-COUM SCH (20:37)
[2017-05-03 00:25] VITALS: BP 117/77
[2017-05-03] MEDS: LEVOTHYROXINE 150 MCG TABLET HOMEMEDPO SCH (05:25)
[2017-05-03 06:01] LABS: ANION GAP 6 mmol/L (5-15); CALCIUM 8.3 mg/dL (8.5-10.1); CHLORIDE 90 mmol/L (98-107)
[2017-05-03 06:17] LABS: CREATININE 1.13 mg/dL (0.7-1.3)
[2017-05-03 06:49] LABS: BASOPHILS # (AUTO) 0.09 x10^3/uL (0-0.1); BASOPHILS % (AUTO) 1 % (0-1); EOSINOPHILS # (AUTO) 0.14 x10^3/uL (0-0.4); EOSINOPHILS % (AUTO) 1 % (1-7); LYMPHOCYTES # (AUTO) 0.56 x10^3/uL (1-3.4); LYMPHOCYTES % (AUTO) 6 % (22-44); MD NO; MEAN CORPUSCULAR HEMOGLOBIN 27.9 pg (27.5-34.5); MEAN CORPUSCULAR HGB CONC 33.2 g/dL (33.2-36.2); MEAN CORPUSCULAR VOLUME 83.9 fL (81-97); MEAN PLATELET VOLUME 7.4 fL (7.4-10.4); MONOCYTES % (AUTO) 13 % (2-9); NEUTROPHILS # (AUTO) 8.11 x10^3/uL (1.8-6.8); NEUTROPHILS % (AUTO) 80 % (42-75); PLATELET COUNT 192 x10^3/uL (130-400); RED BLOOD COUNT 4.72 x10^6/uL (4.38-5.82); RED CELL DISTRIBUTION WIDTH 16.5 % (9.4-14.8)
[2017-05-03 07:50] LABS: INTERNATIONAL NORMALIZED RATIO 2.04 (0.93-1.1); PROTHROMBIN TIME 20.7 Seconds (9.6-11.5)
[2017-05-03] MEDS: ALBUTEROL SULFATE 2.5 MG/3 ML NPPB SCH ×2 (09:00→19:27)
[2017-05-03] MEDS ORDERED: FUROSEMIDE 40 MG/4 ML IV SCH (09:00)
[2017-05-03] MEDS: [UNRECOGNIZED DRUG - OTHER] HOMEMEDPO SCH (09:00)
[2017-05-03 09:43] VITALS: BP 99/60
[2017-05-03] MEDS: MONTELUKAST 10 MG TABLET PO SCH (09:46)
[2017-05-03] MEDS: MULTIVITAMINS/MINERALS TABLET PO SCH (09:46)
[2017-05-03] MEDS: ASCORBIC ACID 500 MG TABLET PO SCH (09:46)
[2017-05-03] MEDS: MAGNESIUM CHLORIDE 64 MG TABLET.DR PO SCH (09:46)
[2017-05-03] MEDS: CHOLECALCIFEROL 1,000 UNIT TABLET PO SCH (09:46)
[2017-05-03] MEDS: DOXYCYCLINE 100MG TABLET PO SCH ×2 (09:46→19:58)
[2017-05-03] MEDS: SODIUM CHLORIDE FLUSH 10ML SYR IVF SCH (09:46)
[2017-05-03] MEDS: ALBUMIN HUMAN 25% 100 ML IV SCH ×3 (09:46→23:30)
[2017-05-03] MEDS: EPLERENONE 100 MG HOMEMEDPO SCH (09:47)
[2017-05-03] MEDS: FUROSEMIDE 40 MG/4 ML IV SCH ×2 (10:38→17:21)
[2017-05-03 13:59] VITALS: BP 102/64
[2017-05-03] MEDS ORDERED: WARFARIN 5 MG TABLET PO-COUM ONE (18:00)
[2017-05-03 19:42] VITALS: BP 104/62
[2017-05-03] MEDS: ATORVASTATIN 20 MG TABLET PO SCH (19:58)
[2017-05-03] MEDS: GABAPENTIN 400 MG CAPSULE PO SCH (19:58)
[2017-05-04] MEDS: FUROSEMIDE 40 MG/4 ML IV SCH ×4 (01:10→21:41)
[2017-05-04] MEDS: SODIUM CHLORIDE FLUSH 10ML SYR IVF SCH ×3 (01:10→21:41)
[2017-05-04 01:19] VITALS: BP 112/78
[2017-05-04] MEDS: LEVOTHYROXINE 150 MCG TABLET HOMEMEDPO SCH (05:16)
[2017-05-04 06:07] LABS: BASOPHILS # (AUTO) 0.02 x10^3/uL (0-0.1); BASOPHILS % (AUTO) 0 % (0-1); EOSINOPHILS # (AUTO) 0.11 x10^3/uL (0-0.4); EOSINOPHILS % (AUTO) 1 % (1-7); LYMPHOCYTES # (AUTO) 0.58 x10^3/uL (1-3.4); LYMPHOCYTES % (AUTO) 7 % (22-44); MD NO; MEAN CORPUSCULAR HGB CONC 33.7 g/dL (33.2-36.2); MEAN CORPUSCULAR VOLUME 83.1 fL (81-97); MONOCYTES # (AUTO) 1.07 x10^3/uL (0.2-0.8); MONOCYTES % (AUTO) 13 % (2-9); NEUTROPHILS # (AUTO) 6.41 x10^3/uL (1.8-6.8); NEUTROPHILS % (AUTO) 78 % (42-75); PLATELET COUNT 156 x10^3/uL (130-400); RED BLOOD COUNT 4.31 x10^6/uL (4.38-5.82); RED CELL DISTRIBUTION WIDTH 16.3 % (9.4-14.8)
[2017-05-04 06:21] LABS: CALCIUM 8.4 mg/dL (8.5-10.1); CHLORIDE 91 mmol/L (98-107)
[2017-05-04 06:25] LABS: ANION GAP 9 mmol/L (5-15); CREATININE 1.19 mg/dL (0.7-1.3)
[2017-05-04] MEDS: ALBUMIN HUMAN 25% 100 ML IV SCH ×3 (07:30→23:27)
[2017-05-04 08:00] VITALS: BP 101/64
[2017-05-04] MEDS: MAGNESIUM CHLORIDE 64 MG TABLET.DR PO SCH (08:41)
[2017-05-04] MEDS: DOXYCYCLINE 100MG TABLET PO SCH ×2 (08:41→21:46)
[2017-05-04] MEDS: MULTIVITAMINS/MINERALS TABLET PO SCH (08:42)
[2017-05-04] MEDS: MONTELUKAST 10 MG TABLET PO SCH (08:43)
[2017-05-04] MEDS: ATORVASTATIN 20 MG TABLET PO SCH (08:43)
[2017-05-04] MEDS: ASCORBIC ACID 500 MG TABLET PO SCH (08:43)
[2017-05-04] MEDS: CHOLECALCIFEROL 1,000 UNIT TABLET PO SCH (08:43)
[2017-05-04] MEDS: [UNRECOGNIZED DRUG - OTHER] HOMEMEDPO SCH (08:44)
[2017-05-04] MEDS: EPLERENONE 100 MG HOMEMEDPO SCH (08:44)
[2017-05-04 14:24] LABS: INTERNATIONAL NORMALIZED RATIO 1.92 (0.93-1.1); PROTHROMBIN TIME 19.5 Seconds (9.6-11.5)
[2017-05-04 14:25] VITALS: BP 98/62
[2017-05-04] MEDS ORDERED: WARFARIN 3 MG TABLET PO-COUM ONE (18:00)
[2017-05-04 19:08] VITALS: BP 105/57
[2017-05-04] MEDS: ALBUTEROL SULFATE 2.5 MG/3 ML NPPB PRN (21:03)
[2017-05-04] MEDS: GABAPENTIN 400 MG CAPSULE PO SCH (21:41)
[2017-05-05 02:30] VITALS: BP 104/63
[2017-05-05 05:56] LABS: INTERNATIONAL NORMALIZED RATIO 1.91 (0.93-1.1); PROTHROMBIN TIME 19.4 Seconds (9.6-11.5)
[2017-05-05 06:07] LABS: BASOPHILS # (AUTO) 0.07 x10^3/uL (0-0.1); BASOPHILS % (AUTO) 1 % (0-1); CHLORIDE 92 mmol/L (98-107); EOSINOPHILS # (AUTO) 0.11 x10^3/uL (0-0.4); EOSINOPHILS % (AUTO) 1 % (1-7); LYMPHOCYTES # (AUTO) 0.41 x10^3/uL (1-3.4); LYMPHOCYTES % (AUTO) 5 % (22-44); MD NO; MEAN CORPUSCULAR HEMOGLOBIN 27.8 pg (27.5-34.5); MEAN CORPUSCULAR HGB CONC 33.4 g/dL (33.2-36.2); MEAN CORPUSCULAR VOLUME 83.3 fL (81-97); MEAN PLATELET VOLUME 7.4 fL (7.4-10.4); MONOCYTES # (AUTO) 1.33 x10^3/uL (0.2-0.8); MONOCYTES % (AUTO) 16 % (2-9); NEUTROPHILS # (AUTO) 6.51 x10^3/uL (1.8-6.8); NEUTROPHILS % (AUTO) 77 % (42-75); PLATELET COUNT 145 x10^3/uL (130-400); RED BLOOD COUNT 4.32 x10^6/uL (4.38-5.82); RED CELL DISTRIBUTION WIDTH 16.2 % (9.4-14.8)
[2017-05-05 06:16] LABS: ALANINE AMINOTRANSFERASE 24 U/L (12-78); ALBUMIN 3.2 g/dL (3.4-5.0); ALKALINE PHOSPHATASE 128 U/L (45-117); ANION GAP 10 mmol/L (5-15); BILIRUBIN,TOTAL 1.5 mg/dL (0.2-1.0); CALCIUM 8.1 mg/dL (8.5-10.1); CREATININE 1.26 mg/dL (0.7-1.3); TOTAL PROTEIN 5.8 g/dL (6.4-8.2)
[2017-05-05 07:54] VITALS: BP 96/57
[2017-05-05] MEDS ORDERED: METOLAZONE 5 MG TABLET PO ONE (08:00)
[2017-05-05] MEDS: ALBUMIN HUMAN 25% 100 ML IV SCH ×2 (08:56→15:55)
[2017-05-05] MEDS: EPLERENONE 100 MG HOMEMEDPO SCH (09:00)
[2017-05-05] MEDS: [UNRECOGNIZED DRUG - OTHER] HOMEMEDPO SCH (09:00)
[2017-05-05] MEDS: MULTIVITAMINS/MINERALS TABLET PO SCH (09:47)
[2017-05-05] MEDS: LEVOTHYROXINE 150 MCG TABLET HOMEMEDPO SCH (09:47)
[2017-05-05] MEDS: MAGNESIUM CHLORIDE 64 MG TABLET.DR PO SCH (09:47)
[2017-05-05] MEDS: DOXYCYCLINE 100MG TABLET PO SCH ×2 (09:47→22:03)
[2017-05-05] MEDS: ATORVASTATIN 20 MG TABLET PO SCH (09:47)
[2017-05-05] MEDS: MONTELUKAST 10 MG TABLET PO SCH (09:47)
[2017-05-05] MEDS: ASCORBIC ACID 500 MG TABLET PO SCH (09:48)
[2017-05-05] MEDS: CHOLECALCIFEROL 1,000 UNIT TABLET PO SCH (09:48)
[2017-05-05] MEDS: SODIUM CHLORIDE FLUSH 10ML SYR IVF SCH ×2 (09:48→22:03)
[2017-05-05] MEDS: FUROSEMIDE 40 MG/4 ML IV SCH ×3 (10:48→22:03)
[2017-05-05] MEDS: ALBUTEROL SULFATE 2.5 MG/3 ML NPPB PRN (10:51)
[2017-05-05 13:37] VITALS: BP 93/54
[2017-05-05] MEDS ORDERED: WARFARIN 3 MG TABLET PO-COUM SCH (18:00)
[2017-05-05] MEDS ORDERED: ALBUTEROL SULFATE 2.5 MG/3 ML ONE ×2 (18:51→18:52)
[2017-05-05 19:02] VITALS: BP 103/55
[2017-05-05] MEDS: ALBUTEROL SULFATE 2.5 MG/3 ML NPPB SCH (20:32)
[2017-05-05] MEDS: GABAPENTIN 400 MG CAPSULE PO SCH (22:03)
[2017-05-06] MEDS: ALBUMIN HUMAN 25% 100 ML IV SCH ×2 (01:24→08:04)
[2017-05-06 01:31] VITALS: BP 105/55
[2017-05-06 05:22] LABS: BASOPHILS # (AUTO) 0.08 x10^3/uL (0-0.1); BASOPHILS % (AUTO) 1 % (0-1); EOSINOPHILS # (AUTO) 0.12 x10^3/uL (0-0.4); EOSINOPHILS % (AUTO) 1 % (1-7); LYMPHOCYTES % (AUTO) 5 % (22-44); MD NO; MEAN CORPUSCULAR HEMOGLOBIN 27.9 pg (27.5-34.5); MEAN CORPUSCULAR HGB CONC 33.4 g/dL (33.2-36.2); MEAN CORPUSCULAR VOLUME 83.6 fL (81-97); MEAN PLATELET VOLUME 7.4 fL (7.4-10.4); MONOCYTES # (AUTO) 1.06 x10^3/uL (0.2-0.8); MONOCYTES % (AUTO) 13 % (2-9); NEUTROPHILS # (AUTO) 6.39 x10^3/uL (1.8-6.8); NEUTROPHILS % (AUTO) 80 % (42-75); PLATELET COUNT 143 x10^3/uL (130-400); RED BLOOD COUNT 4.08 x10^6/uL (4.38-5.82); RED CELL DISTRIBUTION WIDTH 16.4 % (9.4-14.8)
[2017-05-06 05:27] LABS: INTERNATIONAL NORMALIZED RATIO 2.09 (0.93-1.1); PROTHROMBIN TIME 21.2 Seconds (9.6-11.5)
[2017-05-06 05:33] LABS: ANION GAP 8 mmol/L (5-15); CALCIUM 8.5 mg/dL (8.5-10.1); CHLORIDE 88 mmol/L (98-107)
[2017-05-06 05:36] LABS: CREATININE 1.13 mg/dL (0.7-1.3)
[2017-05-06] MEDS: LEVOTHYROXINE 150 MCG TABLET HOMEMEDPO SCH (05:52)
[2017-05-06 07:00] VITALS: BP 101/66
[2017-05-06] MEDS: POTASSIUM CHLORIDE 20 MEQ TAB.ER.PRT PO SCH ×2 (08:01→12:02)
[2017-05-06] MEDS: EPLERENONE 100 MG HOMEMEDPO SCH (08:01)
[2017-05-06] MEDS: MULTIVITAMINS/MINERALS TABLET PO SCH (08:02)
[2017-05-06] MEDS: SODIUM CHLORIDE FLUSH 10ML SYR IVF SCH ×2 (08:03→20:25)
[2017-05-06] MEDS: ASCORBIC ACID 500 MG TABLET PO SCH (08:03)
[2017-05-06] MEDS: CHOLECALCIFEROL 1,000 UNIT TABLET PO SCH (08:03)
[2017-05-06] MEDS: ATORVASTATIN 20 MG TABLET PO SCH (08:03)
[2017-05-06] MEDS: DOXYCYCLINE 100MG TABLET PO SCH ×2 (08:03→20:24)
[2017-05-06] MEDS: MONTELUKAST 10 MG TABLET PO SCH (08:03)
[2017-05-06] MEDS: MAGNESIUM CHLORIDE 64 MG TABLET.DR PO SCH (08:03)
[2017-05-06] MEDS: FUROSEMIDE 40 MG/4 ML IV SCH ×3 (09:47→20:24)
[2017-05-06] MEDS: ALBUTEROL SULFATE 2.5 MG/3 ML NPPB SCH ×2 (10:45→21:00)
[2017-05-06] MEDS: [UNRECOGNIZED DRUG - OTHER] HOMEMEDPO SCH (11:00)
[2017-05-06 14:21] VITALS: BP 97/61
[2017-05-06] MEDS ORDERED: POTASSIUM CHLORIDE 20 MEQ TAB.ER.PRT PO ONE ×2 (14:30→19:30)
[2017-05-06] MEDS ORDERED: WARFARIN 3 MG TABLET PO-COUM SCH (18:00)
[2017-05-06 18:59] VITALS: BP 109/71
[2017-05-06] MEDS: GABAPENTIN 400 MG CAPSULE PO SCH (20:24)
[2017-05-07 01:47] VITALS: BP 94/50
[2017-05-07] MEDS: LEVOTHYROXINE 150 MCG TABLET HOMEMEDPO SCH (05:06)
[2017-05-07 05:29] LABS: BASOPHILS # (AUTO) 0.05 x10^3/uL (0-0.1); BASOPHILS % (AUTO) 1 % (0-1); EOSINOPHILS # (AUTO) 0.09 x10^3/uL (0-0.4); EOSINOPHILS % (AUTO) 1 % (1-7); LYMPHOCYTES # (AUTO) 0.49 x10^3/uL (1-3.4); LYMPHOCYTES % (AUTO) 6 % (22-44); MD NO; MEAN CORPUSCULAR HEMOGLOBIN 27.9 pg (27.5-34.5); MEAN CORPUSCULAR HGB CONC 33.2 g/dL (33.2-36.2); MEAN CORPUSCULAR VOLUME 84.2 fL (81-97); MEAN PLATELET VOLUME 7.7 fL (7.4-10.4); MONOCYTES # (AUTO) 1.08 x10^3/uL (0.2-0.8); MONOCYTES % (AUTO) 13 % (2-9); NEUTROPHILS # (AUTO) 6.51 x10^3/uL (1.8-6.8); NEUTROPHILS % (AUTO) 79 % (42-75); PLATELET COUNT 159 x10^3/uL (130-400); RED BLOOD COUNT 4.18 x10^6/uL (4.38-5.82); RED CELL DISTRIBUTION WIDTH 15.8 % (9.4-14.8)
[2017-05-07 05:43] LABS: CALCIUM 8.7 mg/dL (8.5-10.1); CHLORIDE 87 mmol/L (98-107)
[2017-05-07 05:47] LABS: ANION GAP 12 mmol/L (5-15); CREATININE 1.19 mg/dL (0.7-1.3)
[2017-05-07 06:53] VITALS: BP 106/66
[2017-05-07] MEDS ORDERED: DOXY100T PO (06:58)
[2017-05-07] MEDS ORDERED: POTASSIUM CHLORIDE 20 MEQ TAB.ER.PRT PO ONE (07:00)
[2017-05-07 07:41] LABS: INTERNATIONAL NORMALIZED RATIO 1.98 (0.93-1.1); PROTHROMBIN TIME 20.1 Seconds (9.6-11.5)
[2017-05-07] MEDS: CHOLECALCIFEROL 1,000 UNIT TABLET PO SCH (07:50)
[2017-05-07] MEDS: MAGNESIUM CHLORIDE 64 MG TABLET.DR PO SCH (07:51)
[2017-05-07] MEDS: MONTELUKAST 10 MG TABLET PO SCH (07:51)
[2017-05-07] MEDS: DOXYCYCLINE 100MG TABLET PO SCH (07:51)
[2017-05-07] MEDS: ASCORBIC ACID 500 MG TABLET PO SCH (07:51)
[2017-05-07] MEDS: MULTIVITAMINS/MINERALS TABLET PO SCH (07:51)
[2017-05-07] MEDS: EPLERENONE 100 MG HOMEMEDPO SCH (07:51)
[2017-05-07] MEDS: SODIUM CHLORIDE FLUSH 10ML SYR IVF SCH (07:51)
[2017-05-07] MEDS: ATORVASTATIN 20 MG TABLET PO SCH (07:51)
[2017-05-07] MEDS: [UNRECOGNIZED DRUG - OTHER] HOMEMEDPO SCH (07:52)
[2017-05-07] MEDS: ALBUTEROL SULFATE 2.5 MG/3 ML NPPB SCH (11:11)
[2017-05-07] MEDS ORDERED: WARFARIN 7.5 MG TABLET PO-COUM SCH (18:00)
== END 2017-05-07 14:15 | disposition home or self-care (01) | DRG 280 ==
LOC: ED 03:25 → EDIP 04:09 → 5SO 07:47
PROVIDERS: ADMIT Surgery; ATTEND Internal Medicine
PROC: 5A09357 Assistance with Respiratory Ventilation, Less than 24 Consecutive Hours, Continuous Positive Airway Pressure (ICD-10-PCS; principal; 2017-05-02)
PROC: 5A09357 Assistance with Respiratory Ventilation, Less than 24 Consecutive Hours, Continuous Positive Airway Pressure (ICD-10-PCS; 2017-05-04)
PROC: 5A09357 Assistance with Respiratory Ventilation, Less than 24 Consecutive Hours, Continuous Positive Airway Pressure (ICD-10-PCS; 2017-05-05)
PROC: 5A09357 Assistance with Respiratory Ventilation, Less than 24 Consecutive Hours, Continuous Positive Airway Pressure (ICD-10-PCS; 2017-05-06)
PROC: 5A09357 Assistance with Respiratory Ventilation, Less than 24 Consecutive Hours, Continuous Positive Airway Pressure (ICD-10-PCS; 2017-05-07)
DX: I13.0 Hypertensive heart and chronic kidney disease with heart failure and stage 1 through stage 4 chronic kidney disease, or unspecified chronic kidney disease (principal); I50.43 Acute on chronic combined systolic (congestive) and diastolic (congestive) heart failure; I21.9 Acute myocardial infarction, unspecified; J96.21 Acute and chronic respiratory failure with hypoxia; N17.9 Acute kidney failure, unspecified; E11.22 Type 2 diabetes mellitus with diabetic chronic kidney disease; L03.115 Cellulitis of right lower limb; E66.01 Morbid (severe) obesity due to excess calories; K76.1 Chronic passive congestion of liver; N18.3 Chronic kidney disease, stage 3 (moderate); E87.1 Hypo-osmolality and hyponatremia; L03.116 Cellulitis of left lower limb; J44.1 Chronic obstructive pulmonary disease with (acute) exacerbation; E87.5 Hyperkalemia; N50.89 Other specified disorders of the male genital organs; E03.9 Hypothyroidism, unspecified; Z68.39 Body mass index [BMI] 39.0-39.9, adult; E87.6 Hypokalemia; G47.33 Obstructive sleep apnea (adult) (pediatric); I44.7 Left bundle-branch block, unspecified; I48.0 Paroxysmal atrial fibrillation; I48.2 Chronic atrial fibrillation; I50.82 Biventricular heart failure; I87.8 Other specified disorders of veins; Z79.01 Long term (current) use of anticoagulants; Z86.73 Personal history of transient ischemic attack (TIA), and cerebral infarction without residual deficits; Z87.891 Personal history of nicotine dependence
CPT/HCPCS: 36415; 71010; 80048; 80053; 83735; 83880; 84100; 84132; 84484; 85025; 85610; 85651; 86141; 93005; 93970; 94640; 99285; J1940; J7613; P9047; 29581-50